=== PATIENT | male | born 1945 | race Caucasian/White ===

== ENCOUNTER → 2018-05-24 18:21 | Emergency (ER) | payer MEDICARE, OTHER ==
--- NOTE | 2018-05-24 20:51 | ED ---
Lower Extremity - HPI Summary HPI Summary: Pt is a 73 y/o M presenting to the ED with a chief complaint of L hip pain. The pt reports he slipped on ice and fell on his L hip. - History of Current Complaint Chief Complaint: EDExtremityLower Stated Complaint: FALL/HIP INJURY Time Seen by Provider: 05/24/18 20:31 Hx Obtained From: Patient Mechanism Of Injury: Fall From A Standing Position - slipped on ice Onset of Pain: Hours Onset/Duration: Still Present Severity Initially: Mild Severity Currently: Mild Pain Intensity: 2 Pain Scale Used: 0-10 Numeric Timing: Constant, Lasting Hours Location: Is Discrete @ - L hip Character Of Pain: Aching Associated Signs And Symptoms: Positive: Swelling. Negative: Fever Aggravating Factor(s): Movement Alleviating Factor(s): Rest Able to Bear Weight: Yes - Allergies/Home Medications Home Medications: Home Medications Aspirin 81 mg CHEW TAB* [Aspirin Low Dose TAB*] 81 mg PO DAILY 05/24/18 [ History Confirmed 05/24/18] Atorvastatin* [Lipitor*] 80 mg PO QPM 05/24/18 [History Confirmed 05/24/18] Carvedilol TAB* [Coreg TAB*] 3.125 mg PO BID 05/24/18 [History Confirmed ] Furosemide TAB* [Lasix TAB*] 20 mg PO DAILY 05/24/18 [History Confirmed 05/24/18 ] Ramipril [Altace] 2.5 mg PO BID 05/24/18 [History Confirmed 05/24/18] Sotalol HCl [Sotalol] 80 mg PO DAILY 05/24/18 [History Confirmed 05/24/18] Spironolactone TAB* [Aldactone TAB*] 25 mg PO DAILY 05/24/18 [History Confirmed 05/24/18] Warfarin TAB(*) [Coumadin TAB(*)] 2.5 mg PO SEE INSTRUCTIONS 05/24/18 [History Confirmed 05/24/18] Warfarin TAB(*) [Coumadin TAB(*)] 5 mg PO SEE INSTRUCTIONS 05/24/18 [History Confirmed 05/24/18] PMH/Surg Hx/FS Hx/Imm Hx Previously Healthy: Yes Endocrine/Hematology History: Reports: Hx Anticoagulant Therapy Sensory History: Denies: Hx Deafness Infectious Disease History: No Infectious Disease History: Denies: Traveled Outside the [place] in Last 30 Days - Family History Known Family History: Negative: Renal Disease - Social History Alcohol Use: None Substance Use Type: Reports: None Smoking Status (MU): Never Smoked Tobacco Review of Systems Negative: Fever Positive: Myalgia All Other Systems Reviewed And Are Negative: Yes Physical Exam - Summary Physical Exam Summary: Appearance: Well appearing, no pain distress Skin: warm, dry, reflects adequate perfusion Head/face: normal Eyes: EOMI, SEJAL ENT: normal Neck: supple, non-tender Respiratory: CTA, breath sounds present Cardiovascular: RRR, pulses symmetrical Abdomen: non-tender, soft Musculoskeletal: mild swelling lateral aspect of L hip, strength/ROM intact Neuro: no neurovascular deficits, sensory motor intact, A&Ox3 Triage Information Reviewed: Yes Vital Signs On Initial Exam: Initial Vitals Temp Pulse Resp BP Pulse Ox 97.7 F 69 16 133/82 97 05/24/18 18:33 05/24/18 18:33 05/24/18 18:33 05/24/18 18:33 05/24/18 18:33 Vital Signs Reviewed: Yes Diagnostics - Vital Signs Vital Signs Temp Pulse Resp BP Pulse Ox 05/24/18 18:33 97.7 F 69 16 133/82 97 - Laboratory Lab Statement: Any lab studies that have been ordered have been reviewed, and results considered in the medical decision making process. - Radiology Hip/pelvis x-ray Radiology Interpretation Completed By: ED Physician Summary of Radiographic Findings: No acute findings. Pending official radiology report. Lower Extremity Course/Dx - Course Course Of Treatment: Pt is a 73 y/o M presenting to the ED with a chief complaint of L hip pain. The pt reports he slipped on ice and fell on his L hip. The hip/pelvis x-ray is negative and the pt will be sent home with a dx of L hip pain, fall, and L hip contusion. - Diagnoses Differential Diagnosis/HQI/PQRI: Positive: Contusion, Fracture (Closed) Provider Diagnoses: Left hip pain, Fall, Contusion of left hip Discharge - Sign-Out/Discharge Documenting (check all that apply): Patient Departure Patient Received Moderate/Deep Sedation with Procedure: No - Discharge Plan Condition: Stable Disposition: HOME Referrals: David Morgan JR, PA [Primary Care Provider] - Charles Albright MD [Medical Doctor] - Additional Instructions: Please follow up with Dr. Albright within the next three days. Return to the ED with any new or worsening symptoms. - Billing Disposition and Condition Condition: STABLE Disposition: Home - Attestation Statements Document Initiated by Dee: Yes Documenting Scribe: Tali Centeno Provider For Whom Dee is Documenting (Include Credential): Adam Guerra MD. Scribe Attestation: Tali Devries, scribed for Adam Guerra MD. on 05/24/18 at 2058. Scribe Documentation Reviewed: Yes Provider Attestation: The documentation as recorded by the Tali harris accurately reflects the service I personally performed and the decisions made by , Adam Guerra MD. Status of Scribe Document: Viewed
[2018-05-24 21:21] VITALS: BP 120/77
== END | disposition home or self-care (01) ==
LOC: ED 18:21
DX: S70.02XA Contusion of left hip, initial encounter (principal); W00.0XXA Fall on same level due to ice and snow, initial encounter; Y92.9 Unspecified place or not applicable; Z79.01 Long term (current) use of anticoagulants; Z79.82 Long term (current) use of aspirin
CPT/HCPCS: 99282